=== PATIENT | male | born 1950 | race African-American/Black ===

== ENCOUNTER 2017-11-09 20:16 | Inpatient (IN) | payer OTHER, MEDICARE ==
[~2017-11-09] VITALS: Ht 175.3 cm; Wt 83.8 kg
[2017-11-09 21:00] LABS: Basophils # (auto) 0 uL; Basophils % (auto) 0.6 % (0.0-2.0); Eosinophils # (auto) 0.3 uL; Eosinophils % (auto) 3.5 % (0.0-7.0); Hematocrit 42.8 % (41.0-53.0); Lymphocytes # (auto) 1.8 uL; Lymphocytes % (auto) 22.3 % (10.0-50.0); Mean Corpuscular Hemoglobin 27.3 pg (28.0-32.0); Mean Corpuscular Hgb Conc. 32.7 g/dL (32.0-36.0); Mean Corpuscular Volume 83.3 fL (80.0-100.0); Monocytes # (auto) 0.8 uL; Monocytes % (auto) 10.4 % (0.0-12.0); Neutrophils # (auto) 5.1 uL; Neutrophils % (auto) 63.2 % (37.0-80.0); Platelet Count (auto) 259 10^3/uL (140-450); Red Blood Cells 5.14 10^6/uL (4.5-5.90); Red Cell Distribution Width 14.3 % (11.8-14.3)
[2017-11-09 21:07] LABS: Urine Bacteria NONE SEEN /hpf (None Seen); Urine Blood Negative /uL (Negative); Urine Hyaline Cast FEW /lpf (0 - 2); Urine Specific Gravity 1.015 (1.001-1.035); Urine WBC 1 /hpf (0 - 3)
[2017-11-09 21:22] LABS: Alcohol, Urine < 3.0 mg/dL (0-5); Amphetamine Screen, Urine NEGATIVE (NEGATIVE); Barbiturate Scree,Urine NEGATIVE (NEGATIVE); Benzodiazephine Screen, Urine NEGATIVE (NEGATIVE); Cannabinoid Screen, Urine NEGATIVE (NEGATIVE); Cocaine Screen, Urine NEGATIVE (NEGATIVE); Opiate Scree,Urine NEGATIVE (NEGATIVE); Phencyclidine Screen, Urine NEGATIVE (NEGATIVE)
[2017-11-09 21:22] LABS: Albumin 3.3 g/dL (3.4-5.0); Anion Gap 10 (5-15); Blood Urea Nitrogen 12 mg/dL (7-18); Calcium 7.8 mg/dL (8.5-10.1); Carbon Dioxide 23 mmol/L (21-32); Chloride 109 mmol/L (98-107); Glucose 98 mg/dL (74-106); Magnesium 2.3 mg/dL (1.6-2.6); Potassium 3.7 mmol/L (3.5-5.1); Sodium 142 mmol/L (136-145)
[2017-11-09 21:24] LABS: Alanine Aminotransferase 23 U/L (16-61); Aspartate Aminotransferase 18 U/L (15-37); BUN/Creatinine Ratio 9.2; Blood Alcohol < 3.0 mg/dL (0-5); GFR African American 70 mL/min; GFR Non-African American 58 mL/min
[2017-11-09 21:26] LABS: Lactic Acid w/Reflex 3.5 mmol/L (0.4-2.0)
[2017-11-09 21:30] LABS: Alkaline Phosphatase 83 U/L (45-117); Bilirubin, Total 0.6 mg/dL (0.2-1.0); Total Protein 7.6 g/dL (6.4-8.2)
[2017-11-09] MEDS ORDERED: OLAN10TA29 PO (23:14)
[2017-11-09] MEDS ORDERED: VITA200T2 PO (23:15)
[2017-11-10] MEDS ORDERED: LORazepam 2MG/ML-1ML VIAL ONE (00:18)
[2017-11-10] MEDS ORDERED: LORazepam 2MG/ML-1ML VIAL IV ONE (00:30)
[2017-11-10] MEDS ORDERED: LEVETIRACETAM 500 MG/5ML INJ IV ONE ×2 (00:57→01:15)
[2017-11-10] MEDS ORDERED: LEVETIRACETAM INJ 500 MG in D5W 5% 100 ML IV ONE ×2 (01:00→01:15)
[2017-11-10] MEDS ORDERED: SODIUM CHLORIDE 0.9% 2,000 ML IV ONE (01:45)
[2017-11-10] MEDS ORDERED: LEVOFLOXACIN 500MG 100 ML IV ONE (01:45)
[2017-11-10] MEDS ORDERED: ACETAMINOPHEN 500 MG TAB PO PRN (03:30)
[2017-11-10] MEDS ORDERED: ONDANSETRON HCL 4 MG/2 ML VIAL IV PRN (03:30)
[2017-11-10] MEDS ORDERED: LORazepam 2MG/ML-1ML VIAL IV PRN ×2 (03:30→08:45)
[2017-11-10] MEDS ORDERED: HYDROcodone-ACET 5/325MG TAB PO PRN (03:30)
[2017-11-10] MEDS ORDERED: TEMAZEPAM 15 MG CAP PO PRN (03:30)
[2017-11-10 05:15] VITALS: BP 146/88
[2017-11-10 05:35] VITALS: BP 146/88
[2017-11-10 08:00] VITALS: BP 145/89
[2017-11-10 08:03] LABS: Basophils # (auto) 0 uL; Basophils % (auto) 0.4 % (0.0-2.0); Eosinophils # (auto) 0.1 uL; Hemoglobin 14.1 g/dL (13.5-17.5); Monocytes # (auto) 0.7 uL; White Blood Cell 10.1 10^3/uL (4.4-10.8)
[2017-11-10 08:05] LABS: Eosinophils % (auto) 0.8 % (0.0-7.0); Hematocrit 42.2 % (41.0-53.0); Lymphocytes # (auto) 1.3 uL; Lymphocytes % (auto) 13.3 % (10.0-50.0); Mean Corpuscular Hemoglobin 27.6 pg (28.0-32.0); Mean Corpuscular Hgb Conc. 33.4 g/dL (32.0-36.0); Mean Corpuscular Volume 82.6 fL (80.0-100.0); Monocytes % (auto) 7.2 % (0.0-12.0); Neutrophils # (auto) 7.9 uL; Neutrophils % (auto) 78.3 % (37.0-80.0); Nucleated Red Blood Cells % 0.1 %; Platelet Count (auto) 235 10^3/uL (140-450); Red Cell Distribution Width 14.1 % (11.8-14.3)
[2017-11-10 08:23] LABS: BUN/Creatinine Ratio 9.4; Calcium 8.1 mg/dL (8.5-10.1); Potassium 3.7 mmol/L (3.5-5.1)
[2017-11-10 09:10] LABS: Folate (Folic Acid) 13.33 ng/mL (5.38-24)
[2017-11-10] MEDS: LEVETIRACETAM INJ 500 MG in D5W 5% 100 ML IV SCH ×2 (15:09→21:44)
[2017-11-10 22:00] VITALS: BP 140/77
[2017-11-11 05:00] VITALS: BP 135/64
[2017-11-11 06:07] LABS: Basophils # (auto) 0.1 uL; Basophils % (auto) 0.9 % (0.0-2.0); Eosinophils # (auto) 0.3 uL; Eosinophils % (auto) 4.1 % (0.0-7.0); Hematocrit 41.8 % (41.0-53.0); Hemoglobin 14.1 g/dL (13.5-17.5); Lymphocytes # (auto) 1.8 uL; Lymphocytes % (auto) 22.5 % (10.0-50.0); Mean Corpuscular Hemoglobin 27.8 pg (28.0-32.0); Mean Corpuscular Hgb Conc. 33.7 g/dL (32.0-36.0); Mean Corpuscular Volume 82.7 fL (80.0-100.0); Monocytes # (auto) 0.7 uL; Monocytes % (auto) 8.5 % (0.0-12.0); Neutrophils # (auto) 5.2 uL; Nucleated Red Blood Cells % 0.1 %; Platelet Count (auto) 239 10^3/uL (140-450); Red Blood Cells 5.06 10^6/uL (4.5-5.90); Red Cell Distribution Width 14.3 % (11.8-14.3); White Blood Cell 8.1 10^3/uL (4.4-10.8)
[2017-11-11 06:25] LABS: Potassium 3.8 mmol/L (3.5-5.1)
[2017-11-11 06:33] LABS: BUN/Creatinine Ratio 13.2; Calcium 7.9 mg/dL (8.5-10.1)
[2017-11-11 09:00] VITALS: BP_SYST 126; BP_SYST 127; BP_DIAS 64; BP_DIAS 79
[2017-11-11] MEDS: LEVETIRACETAM INJ 500 MG in D5W 5% 100 ML IV SCH ×2 (09:55→21:41)
[2017-11-11 13:00] VITALS: BP 138/91
[2017-11-11 17:00] VITALS: BP 146/96
[2017-11-11 22:00] VITALS: BP 158/68
[2017-11-12 05:00] VITALS: BP 140/87
[2017-11-12 07:27] LABS: Basophils # (auto) 0.1 uL; Basophils % (auto) 0.8 % (0.0-2.0); Eosinophils # (auto) 0.4 uL; Eosinophils % (auto) 5.1 % (0.0-7.0); Hematocrit 43.6 % (41.0-53.0); Hemoglobin 14.5 g/dL (13.5-17.5); Lymphocytes % (auto) 25.7 % (10.0-50.0); Mean Corpuscular Hemoglobin 27.7 pg (28.0-32.0); Mean Corpuscular Hgb Conc. 33.3 g/dL (32.0-36.0); Mean Corpuscular Volume 83.3 fL (80.0-100.0); Monocytes # (auto) 0.9 uL; Monocytes % (auto) 11.2 % (0.0-12.0); Neutrophils # (auto) 4.3 uL; Neutrophils % (auto) 57.2 % (37.0-80.0); Nucleated Red Blood Cells % 0.2 %; Platelet Count (auto) 247 10^3/uL (140-450); Red Blood Cells 5.23 10^6/uL (4.5-5.90); Red Cell Distribution Width 14.2 % (11.8-14.3); White Blood Cell 7.6 10^3/uL (4.4-10.8)
[2017-11-12 07:46] LABS: BUN/Creatinine Ratio 10.4; Calcium 8.3 mg/dL (8.5-10.1)
[2017-11-12 09:00] VITALS: BP 133/63
[2017-11-12] MEDS: LEVETIRACETAM INJ 500 MG in D5W 5% 100 ML IV SCH (10:39)
== END 2017-11-12 12:13 | disposition home or self-care (01) | DRG 100 ==
LOC: EDBD 20:16 → ER 20:16 → OVERFLOW 20:17 → CENTRAL 11-10 05:12
PROVIDERS: ADMIT Nurse Practitioner Family; ATTEND Internal Medicine
DX: G40.909 Epilepsy, unspecified, not intractable, without status epilepticus (principal); J18.9 Pneumonia, unspecified organism; G93.41 Metabolic encephalopathy; E11.9 Type 2 diabetes mellitus without complications; F17.200 Nicotine dependence, unspecified, uncomplicated; F20.9 Schizophrenia, unspecified; Z79.899 Other long term (current) drug therapy; Z80.8 Family history of malignant neoplasm of other organs or systems; Z82.3 Family history of stroke
CPT/HCPCS: 36415; 51702; 70450; 70551; 71045; 80048; 80053; 80307; 80320; 81001; 82607; 82746; 83605; 83735; 84443; 84484; 85025; 87040; 93005; 95819; 96365; 96375; A6257; J7060